=== PATIENT | female | born 1990 | race Caucasian/White ===

== ENCOUNTER 2022-12-24 20:37 | Emergency (ER) | payer MEDICAID, SELFPAY ==
--- NOTE | ~2022-12-24 | XR_ITS ---
EXAMINATION: XR chest 2V DATE: 12/24/2022 21:05 INDICATION: Intermittent shortness of breath TECHNIQUE: PA and lateral views of the chest were obtained. COMPARISON: None FINDINGS: Eventration of the anterior right hemidiaphragm. No focal airspace opacities, pulmonary edema, pleura l effusion or pneumothorax. Borderline heart size on the PA projection likely exaggerated by body hab itus and positioning. Mild thoracic spondylosis. IMPRESSION: 1. Borderline heart size which may be exaggerated by patient positioning. No other acute cardiopulmon aria disease. Reviewed, dictated and finalized at location A. 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 Borderline heart size which may be exaggerated by patient positioning. No ot her acute cardiopulmonary disease.
[2022-12-24 20:47] VITALS: BP 207/107; PULSE 65; RESP 18; TEMP 36.7; O2SAT 100
--- NOTE | 2022-12-24 20:50 | ECG_ITS ---
Measurements Intervals [place] Rate: 64 P: 51 TN: 146 QRS: 37 QRSD: 96 T: 10 QT: 405 QTc: 419 Interpretive Statements SINUS RHYTHM WITH SINUS ARRHYTHMIA NO PREVIOUS ECG AVAILABLE FOR COMPARISON Electronically Signed On 12-25-2022 15:35:27 [employer]OX [employer] by Mervin Oviedo M.D.
[2022-12-24 21:15] LABS: Basophils Absolute Auto 0.1 K/mm3 (0.0-0.1); Basophils Percent Auto 0.6 % (0.2-1.2); Eosinophils Absolute Auto 0.1 K/mm3 (0-0.3); Eosinophils Percent Auto 1.3 % (0-4.4); Hematocrit 36.6 % (37.0-47.0); Hemoglobin 11.9 g/dL (12.0-15.0); Immature Granulocyte Absolute 0.04 K/mm3 (0.00-0.031); Immature Granulocyte Percent A 0.5 % (0-0.5); Lymphocytes Absolute Auto 2.44 K/mm3 (0.9-3.2); Lymphocytes Percent Auto 28.5 % (18.3-44.2); Mean Corpuscular HGB Conc 32.5 g/dl (32-36); Mean Corpuscular Hemoglobin 27.8 pg (26-34); Mean Corpuscular Volume 85.5 fl (80-100); Mean Platelet Volume 9.4 fl (7.4-10.4); Monocytes Absolute Auto 0.7 K/mm3 (0.1-0.6); Monocytes Percent Auto 7.6 % (2.6-8.5); Neutrophils Absolute Auto 5.3 K/mm3 (1.3-6.7); Neutrophils Percent Auto 61.5 % (45.5-73.1); Platelet Count Result 348 k/mm3 (150-375); Red Blood Count 4.28 M/mm3 (4.2-5.4); Red Cell Distribution Width 16.9 % (11.5-14.5); White Blood Count 8.6 K/mm3 (4.5-10.0)
[2022-12-24 21:18] LABS: Alanine Aminotransferase 15 U/L (6-35); Albumin Level 4.3 g/dL (3.5-5.1); Alkaline Phosphatase 90 U/L (38-126); Anion Gap 5 mmol/L (8-16); Aspartate Amino Transferase 18 U/L (14-36); Bilirubin,Total 0.6 mg/dL (0.2-1.3); Blood Urea Nitrogen 13 mg/dL (7-17); Calcium 8.8 mg/dL (8.4-10.2); Carbon Dioxide 29 mmol/L (22-30); Chloride 99 mmol/L (98-107); Estimated Glomerular Filt Rate > 60; Glucose 94 mg/dL (65-110); Potassium 3.6 mmol/L (3.4-5.0); Sodium 133 mmol/L (137-145)
[2022-12-24 21:49] VITALS: PULSE 68
[2022-12-24 21:54] VITALS: PULSE 61; RESP 19
[2022-12-24 21:55] VITALS: BP 170/108; PULSE 68; RESP 15
[2022-12-24 22:00] VITALS: PULSE 65; RESP 19
--- NOTE | 2022-12-24 22:00 | PC.NURSE ---
pt states her bp has been elevated. states took an extra dose of her losartan and it remains high. denies any cp or mart.
[2022-12-24 22:02] VITALS: BP 168/108; PULSE 67; RESP 24
--- NOTE | 2022-12-24 22:46 | ED.SOB ---
HPI - SOB/Dyspnea General Chief Complaint: Shortness of Breath/Dyspnea Stated Complaint: hypertension Time Seen by Provider: 12/24/22 22:07 History of Present Illness HPI Narrative: 32-year-old female with a history of hypertension and obesity here for evaluation of shortness of breath today. Patient states that she has felt short of breath since waking up today. She took her blood pressure and noted it was in 200 systolic. She has had issues controlling her blood pressure over the past 2 weeks with her amlodipine/hydrochlorothiazide. Notes every reading has been 160s systolic. She has had some chest pain in the past but none recently. No fevers, chills, nausea, vomiting, cough, congestion. She does have a positive family history of AK in her father and sister at a young age. Related Data Allergies Allergy/AdvReac Type Severity Reaction Status Date / Time ziprasidone [From Toya] AdvReac Agitated Verified 12/24/22 21:49 Review of Systems Review of Systems: Gen: Denies fevers or chills Eyes: Denies eye pain or visual change ENT: Denies congestion Respiratory: Reports shortness of breath. CV: Denies chest pain or palpitations GI: Denies abdominal pain nausea, emesis or diarrhea : denies burning, urgency, frequency or hematuria Musculoskeletal: Denies back pain or muscle pain Neuro: Denies numbness, tingling, weakness or focal weakness Skin: Denies rash Except as documented, all other systems reviewed and negative Exam Narrative: APPEARANCE: Well appearing, no pain in distress, well-nourished. Head: Normocephalic and atraumatic. EYES: PERRLA/EOMI, conjunctivae clear NOSE: No nasal drainage EARS: External ear normal in appearance THROAT: Oropharynx is clear. Mucous membranes are moist. NECK: Supple. No adenopathy, no masses. RESPIRATORY: Diminished breath sounds throughout. Airway patent, respirations nonlabored. Clear to auscultation bilaterally, no rales, rhonchi, wheezing. CARDIOVASCULAR: Regular rate and rhythm without murmurs, rubs, or gallops. ABDOMINAL: Normoactive bowel sounds. Soft, nontender, nondistended. No rebound tenderness or guarding. MUSCULOSKELETAL: Extremities are warm and well-perfused. Moves all extremities well. No edema. NEURO: Normal speech. No focal neurologic deficits. SKIN: Skin is warm and dry. No rashes. PSYCHIATRIC: Normal affect/mood.. Course Vital Signs Vital signs: Vital Signs Temperature 98.0 F 12/24/22 20:47 Pulse Rate 65 12/24/22 20:47 Respiratory Rate 18 12/24/22 20:47 Blood Pressure 207/107 H 12/24/22 20:47 Pulse Oximetry 100 12/24/22 20:47 Oxygen Delivery Room Air 12/24/22 20:47 Temperature 98.0 F 12/24/22 20:47 Pulse Rate 57 L 12/25/22 00:00 Respiratory Rate 18 12/25/22 00:00 Blood Pressure 165/88 H 12/25/22 00:00 Pulse Oximetry 98 12/25/22 00:00 Oxygen Delivery Room Air 12/24/22 20:47 MDM - SOB/Dyspnea MDM Narrative Medical decision making narrative: 32-year-old female here for evaluation of shortness of breath and difficulty controlling her blood pressure with her home medication despite compliance. Also notes several episodes of intermittent chest pain over the past several days. Patient arrives to the ED with initial BP of 207/107, remainder vital signs are normal. BP did come down in the ED to 165/88 without intervention. Patient is nontoxic in appearance, her heart and lungs are clear to auscultation. Her EKG does some show some Q waves in II and III but no signs of active ischemia. Her troponin is negative. Chest x-ray shows possible cardiomegaly but could be related to the position of the x-ray. Her BNP is normal. Dimer is negative. Patient believes her shortness of breath may be due to anxiety which could very well be the case, although she does have several risk factors for cardiac disease, and with the presence of Q waves and difficulty controlling her BP I feel cardiology referral is appropriate at this time. Maddie
[2022-12-24 23:14] LABS: NT Pro B Type Natriuretic Pept 110 pg/mL (19.9-100); Troponin I < 0.012 ng/mL (0.000-0.034)
[2022-12-24 23:38] LABS: D Dimer 0.48 ug/mL (<0.48)
[2022-12-25] VITALS: BP 165/88; PULSE 57; RESP 18; O2SAT 98
== END 2022-12-25 00:13 | disposition home or self-care (01) ==
PROVIDERS: Emergency Medicine; Emergency Provider Physician Assistant
DX: R06.02 Shortness of breath (principal); I10 Essential (primary) hypertension
CPT/HCPCS: 36415; 71046; 80053; 83880; 84484; 85025; 85380; 93005; 99284

== ENCOUNTER 2023-01-22 19:36 | Emergency (ER) | payer OTHER, SELFPAY ==
--- NOTE | ~2023-01-22 | XR_ITS ---
EXAMINATION: XR chest 2V DATE: 01/22/2023 20:16 INDICATION: Midsternal chest pain TECHNIQUE: PA and lateral views of the chest were obtained. COMPARISON: Chest radiograph dated 12/24/2022 FINDINGS: The lungs remain clear with no focal airspace opacities, pulmonary edema, pleural effusion or pneumot horax. The cardiomediastinal silhouette is normal. Mild to moderate thoracic spondylosis. IMPRESSION: 1. No acute cardiopulmonary disease. Reviewed, dictated and finalized at location A. 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
[2023-01-22 19:43] VITALS: BP 146/93; PULSE 96; RESP 20; TEMP 36.9; O2SAT 98
--- NOTE | 2023-01-22 19:45 | ECG_ITS ---
Measurements Intervals [place] Rate: 83 P: 48 UT: 153 QRS: 25 QRSD: 106 T: 6 QT: 379 QTc: 446 Interpretive Statements SINUS RHYTHM POSSIBLE LEFT VENTRICULAR HYPERTROPHY CONSIDER INFERIOR INFARCT, AGE INDETERMINATE BASELINE ARTIFACT- I, II, AVR, AVL ABNORMAL ECG COMPARED TO ECG 12/24/2022 20:59:01 NO SIGNIFICANT CHANGES Electronically Signed On 01-23-2023 6:45:23 RESEARCH NUTRITIONIST by Michael Chand D.O.
[2023-01-22 20:15] LABS: Basophils Absolute Auto 0.1 K/mm3 (0.0-0.1); Basophils Percent Auto 0.7 % (0.2-1.2); Eosinophils Absolute Auto 0.1 K/mm3 (0-0.3); Eosinophils Percent Auto 0.9 % (0-4.4); Hematocrit 36.8 % (37.0-47.0); Hemoglobin 12.2 g/dL (12.0-15.0); Immature Granulocyte Absolute 0.02 K/mm3 (0.00-0.031); Immature Granulocyte Percent A 0.2 % (0-0.5); Lymphocytes Absolute Auto 2.85 K/mm3 (0.9-3.2); Lymphocytes Percent Auto 31.2 % (18.3-44.2); Mean Corpuscular HGB Conc 33.2 g/dl (32-36); Mean Corpuscular Hemoglobin 28.2 pg (26-34); Mean Corpuscular Volume 85.2 fl (80-100); Mean Platelet Volume 9.2 fl (7.4-10.4); Monocytes Absolute Auto 0.5 K/mm3 (0.1-0.6); Monocytes Percent Auto 5.7 % (2.6-8.5); Neutrophils Absolute Auto 5.6 K/mm3 (1.3-6.7); Neutrophils Percent Auto 61.3 % (45.5-73.1); Platelet Count Result 379 k/mm3 (150-375); Red Blood Count 4.32 M/mm3 (4.2-5.4); Red Cell Distribution Width 14.8 % (11.5-14.5); White Blood Count 9.1 K/mm3 (4.5-10.0)
[2023-01-22 20:41] VITALS: BP 159/84; PULSE 84; RESP 18; O2SAT 100
[2023-01-22] MEDS: ASPIRIN 81 MG CHEWABLE TABLET 324 MG PO (20:42)
[2023-01-22 20:50] LABS: Alanine Aminotransferase 19 U/L (6-35); Albumin Level 4.1 g/dL (3.5-5.1); Alkaline Phosphatase 100 U/L (38-126); Anion Gap 5 mmol/L (8-16); Aspartate Amino Transferase 23 U/L (14-36); Bilirubin,Total 0.5 mg/dL (0.2-1.3); Blood Urea Nitrogen 18 mg/dL (7-17); Carbon Dioxide 32 mmol/L (22-30); Chloride 98 mmol/L (98-107); Estimated Glomerular Filt Rate > 60; Glucose 100 mg/dL (65-110); Lipase 60 U/L (23-300); Potassium 2.9 mmol/L (3.4-5.0); Sodium 135 mmol/L (137-145); Troponin I < 0.012 ng/mL (0.000-0.034)
--- NOTE | 2023-01-22 21:09 | ED.GENADULT ---
HPI - General Adult General Chief complaint: Chest Pain Stated complaint: chest pain Time Seen by Provider: 01/22/23 20:26 History of Present Illness HPI narrative: This is a 32-year-old female presenting to ED with a chief complaint of chest pain. The pain started yesterday at 3:00 p.m.. Started while she was running errands and is described as a tightness in the center of her chest that radiates to her back. It is 3/10 in intensity and constant. The patient says that she has been experiencing chest pain since she was in her early 20s although she says this is a completely new sensation. It is improved with bare and worse with stress. There is some associated shortness of breath. She denies vomiting diaphoresis radiation. She denies fever chills productive cough or risk factors for DVT / PE. She has 2 family members who from heart attacks before the age of 50. Her storage management consultant is Dr. Lopes. Related Data Allergies Allergy/AdvReac Type Severity Reaction Status Date / Time adhesive AdvReac Unknown Verified 01/22/23 20:42 ziprasidone [From Geodon] AdvReac Agitated Verified 12/24/22 21:49 Exam Narrative: APPEARANCE: No apparent distress. Head: atraumatic. EYES: EOMI, NOSE: Atraumatic NECK: Trachea midline RESPIRATORY: No increased rate of breathing clear to auscultation bilaterally CARDIOVASCULAR: RRR, , no peripheral edema ABDOMINAL: Non-distended MUSCULOSKELETAl: point tenderness to the left of the patient's sternum that is reproducible. NEURO: Alert. Moving 4/4 extremities SKIN:: Warm, dry. Normal color PSYCHIATRIC: Normal affect Course Vital Signs Vital signs: Vital Signs Temperature 98.5 F 01/22/23 19:43 Pulse Rate 96 01/22/23 19:43 Respiratory Rate 20 01/22/23 19:43 Blood Pressure 146/93 H 01/22/23 19:43 Pulse Oximetry 98 01/22/23 19:43 Oxygen Delivery Room Air 01/22/23 19:43 Temperature 98.5 F 01/22/23 19:43 Pulse Rate 68 01/22/23 21:50 Respiratory Rate 18 01/22/23 21:50 Blood Pressure 146/71 H 01/22/23 21:50 Pulse Oximetry 100 01/22/23 21:50 Oxygen Delivery Room Air 01/22/23 19:43 Medical Decision Making MDM Narrative Medical decision making narrative: -Presentation: This is a 32-year-old female with multiple medical comorbidities and family history of early cardiac presenting to the ED with chest pain. ACS workup, D-dimer and BNP of been ordered. -DDX includes but is not limited to: ACS, blood clot, pneumonia, anterior chest wall pain -Co-morbidities complicating care: obesity, hypertension, depression, family history of cardiac -Social determinants of health: -External Chart Review: none -Hx from independent Sources: none -Discussion of Management/Consultants: none -Independent interpretation of studies: chest x-ray was unremarkable. Independent EKG interpretation: Rhythm [sinus], Rate [83], [place] -[normal], [place] -[normal], QRS [narrow], QTC [normal], T waves -[negative for concerning inversions], ST Segments - [Negative for concerning elevations] Final interpretations: [Normal Sinus Rhythm] CBC was within normal limits. Metabolic panel was significant for potassium of 2.9. This will be repleted orally. Troponinins are undetectable x2. Dx tests considered but not ordered:CT PE - D-dimer is 0.53. YEARS Algorithm for Pulmonary Embolism (PE) from [email or web address] on 01/22/2023 All calculations should be rechecked by clinician prior to use RESULT SUMMARY: PE excluded YEARS algorithm rules out PE (0.43% with symptomatic VTE during 3-month follow-up) INPUTS: patient ?> 0 = No Clinical signs of DVT ?> 0 = No Hemoptysis ?> 0 = No PE most likely diagnosis ?> 0 = No D-dimer &ge;1,000 ng/mL ?> 0 = No -Procedures: None -Interventions: none -Shared decision making / Disposition: Patient's EKGs and labs are reviewed without significant high risk changes. Cardiac risk factors reviewed. Heart score
[2023-01-22 21:30] LABS: INR 1.1; Prothrombin Time 13.9 Seconds (11.1-14.7)
[2023-01-22 21:31] LABS: Partial Thromboplastin Time 29.4 SECONDS (22.3-36.8)
[2023-01-22 21:50] VITALS: BP 146/71; PULSE 68; RESP 18; O2SAT 100
[2023-01-22] MEDS: POTASSIUM CHLORIDE 20 MEQ TABLET 80 MEQ PO (21:50)
[2023-01-22] MEDS: MAGNESIUM SULF 2 GM/WATER 50ML 2 GM/50 ML BAG IVPB (21:51)
[2023-01-22 21:53] LABS: D Dimer 0.53 ug/mL (<0.48)
[2023-01-22 22:37] LABS: NT Pro B Type Natriuretic Pept < 20 pg/mL (19.9-100)
== END 2023-01-22 22:54 | disposition home or self-care (01) ==
PROVIDERS: Emergency Provider Emergency Medicine
DX: R07.89 Other chest pain (principal); R94.31 Abnormal electrocardiogram [ECG] [EKG]
CPT/HCPCS: 36415; 71046; 80053; 83690; 83880; 84484; 85025; 85380; 85610; 85730; 93005; 96365; 99284; A9270; J3475